=== PATIENT | male | born 2005 | race Caucasian/White ===

== ENCOUNTER 2024-03-19 21:53 | Emergency (ER) | payer OTHER, SELFPAY ==
[2024-03-19] MEDS ORDERED: ACETAMINOPHEN 500 MG TAB ONE (23:10)
[2024-03-19] MEDS ORDERED: KETOROLAC 30 MG/ML INJ ONE (23:10)
[2024-03-19 23:37] LABS: Absolute Eosinophils 0.1 K/uL (0-0.5); Absolute Lymphocytes (CBC) 3.5 K/uL (0.7-4.9); Absolute Monocytes 0.5 K/uL (0.1-1.3); Absolute Neutrophil 3.3 K/uL (1.8-8.0); Basophils % 0.2 % (0-1.3); Eosinophils % 1.5 % (0-4.4); Hematocrit 41.8 % (39.6-49.0); Hemoglobin 14.2 g/dL (13.6-17.9); Lymphocytes % 47.3 % (15.3-44.8); MCH 29.9 pg (27.0-35.0); MCHC 33.9 g/dL (32.0-36.0); MCV 88.1 fL (80-100); Monocytes % 6.4 % (3.3-12.3); Neutrophils % 44.6 % (41.7-73.7); Nucleated Red Blood Cells % 0.1 % (0-0); Platelets 136 thou/uL (152-406); RBC Red Blood Cell Count 4.74 M/uL (4.33-5.43); Red Cell Distribution Width 12.9 % (12.1-15.2)
[2024-03-19 23:52] LABS: Specific Gravity 1.016 (1.005-1.030); Sqamous Epithelial None Seen /HPF (None Seen); Urine Bacteria None Seen /HPF (<20); Urine Bilirubin NEGATIVE (Negative); Urine Blood Negative (Negative); Urine Clarity Clear (Clear); Urine Color Light-Yellow (Yellow); Urine Crystals Unidentified Few /HPF (None Seen); Urine Culture Reflex Order NOT NEEDED; Urine Glucose NEGATIVE (Negative); Urine Ketones NEGATIVE (Negative); Urine Micro Reflex YN NO BILL MICROSCOPIC; Urine Mucus Slight /HPF (None Seen); Urine Nitrite NEGATIVE (Negative); Urine Protein NEGATIVE (Negative); Urine RBC <5 /HPF (None Seen); Urine Urobilinogen Normal (Normal)
--- NOTE | 2024-03-20 00:39 | RAD REPORT ---
EXAM: US Scrotum CLINICAL HISTORY: The patient is 18 years old and is Male; scrotal pain TECHNIQUE: Real-time ultrasound of the scrotum with color Doppler and image documentation. COMPARISON: No relevant prior studies available. FINDINGS: RIGHT TESTICLE: Unremarkable. No mass. There is normal blood flow in the testicle, without ev idence of testicular torsion. LEFT TESTICLE: Unremarkable. No mass. There is normal blood flow in the testicle, without rogelio dence of testicular torsion. EPIDIDYMIDES: A left epididymal head cyst is noted. SCROTUM: A left varicocele is present. IMPRESSION: 1. No evidence of torsion. 2. Left varicocele. Electronically signed by: Bethany Stewart MD 03/20/2024 12:35 AM [facility] Due to temporary technical issues with the PACS/[employer] reporting system, reports are being signed by the in-house radiologist without review as a courtesy to ensure prompt reporting the interpreting radiologist is fully responsible for the content of the report. Transcribed Date/Time: 03/20/2024 12:39 AM
--- NOTE | 2024-03-20 00:51 | ER ---
Nurse's Notes [facility] Name: Elia Tatum Age: 18 yrs Sex: Male : 2005 Arrival Date: 03/19/2024 Time: 21:53 Bed 17 Private MD: Diagnosis: Varicocele Presentation: 03/19 22:16 Chief complaint: Patient states: noticed a lump inside of scrotum a couple of months vc1 ago. Tonight it started shooting pain to lower right abdomen. Coronavirus screen: Client denies travel out of the [place] in the last 14 days. At this time, the client does not indicate any symptoms associated with coronavirus-19. Ebola Screen: Patient negative for fever greater than or equal to 101.5 degrees Fahrenheit, and additional compatible Ebola Virus Disease symptoms Patient denies exposure to infectious person. Patient denies travel to an Ebola-affected area in the 21 days before illness onset. No symptoms or risks identified at this time. Initial Sepsis Screen: Does the patient meet any 2 criteria? No. Patient's initial sepsis screen is negative. Does the patient have a suspected source of infection? No. Patient's initial sepsis screen is negative. Risk Assessment: Do you want to hurt yourself or someone else? Patient reports no desire to harm self or others. Onset of symptoms is unknown. 22:16 Method Of Arrival: Ambulatory vc1 22:16 Acuity: MONA 3 vc1 Historical: - Allergies: 22:19 No Known Allergies; vc1 - Home Meds: 22:19 None [Active]; vc1 - PMHx: 22:19 Anxiety; Depressive disorder; vc1 - PSHx: 22:19 None; vc1 - Immunization history:: Client reports receiving the 2nd dose of the Covid vaccine, Flu vaccine is not up to date. - Infectious Disease History:: Denies. - Social history:: Smoking status: Patient denies any tobacco usage or history of. Screenin:22 [facility] ED Fall Risk Assessment (Adult) History of falling in the last 3 months, vc1 including since admission No falls in past 3 months (0 pts) Confusion or Disorientation No (0 pts) Intoxicated or Sedated No (0 pts) Impaired Gait No (0 pts) Mobility Assist Device Used No (0 pt) Altered Elimination No (0 pt) Score/Fall Risk Level 0 - 2 = Low Risk Oriented to surroundings, Maintained a safe environment, Educated pt \T\ family on fall prevention, incl call for assistance when getting out of bed. Abuse screen: Denies threats or abuse. Nutritional screening: No deficits noted. Tuberculosis screening: No symptoms or risk factors identified. Assessment: 22:20 Reassessment: Patient and/or family updated on plan of care and expected duration. Pain br2 level reassessed. Patient is alert, oriented x 3, equal unlabored respirations, skin warm/dry/pink. General: Appears uncomfortable, Behavior is calm, cooperative. Pain: Complains of pain in groin and left femoral area Neuro: Carney Agitation-Sedation Scale (RASS): 0 - Alert and Calm. Cardiovascular: No deficits noted. Denies chest pain. Respiratory: Airway is patent Respiratory effort is even, unlabored, Respiratory pattern is regular, symmetrical. GI: Bowel sounds present X 4 quads. Abdomen is tender to palpation in left lower quadrant. : Reports pain testicle, Pain is 8 out of 10 on a pain scale. 23:30 Reassessment: Patient and/or family updated on plan of care and expected duration. Pain br2 level reassessed. Patient is alert, oriented x 3, equal unlabored respirations, skin warm/dry/pink. Patient denies pain at this time. Patient states feeling better. Patient states symptoms have improved. 03/20 00:20 Reassessment: No changes from previously documented assessment. br2 Vital Signs: 03/19 22:16 BP 153 / 81; Pulse 71; Resp 14; Temp 98; Pulse Ox 97% ; Weight 63.5 kg; Height 5 ft. 11 vc1 in. ; Pain 8/10; 23:44 BP 120 / 65; Pulse 60; Resp 18; Pulse Ox 99% ; Pain 0/10; br2 03/20 01:14 BP 109 / 51; Pulse 58; Resp 18 S; Pulse Ox 100% on R/A; Pain 0/10; br2 03/19 22:16 Body Mass Index 19.53 (63.50 kg, 180.34 cm) vc1 03/19 22:16 Pain Scale: Adult vc1 23:44 Pain Scale: Adult br2 03/20 01:14 Pain Scale: Adult br2 ED Course: 03/19 21:56 Patient arrived in ED. im 22:00 Ramon Blankenship MD is Attending Physician. ec2 22:16 Dina Guerra, SCOTT is Primary Nurse. br2 22:19 Triage completed. vc1 22:21 Arm band placed on right wrist. vc1 22:21 Provided Education on: PLAN OF CARE. br2 22:22 Patient has correct armband on for positive identification. Bed in low position. Call vc1 light in reach. Pulse ox on. NIBP on. 22:55 Scrotum Testicles US In Process Unspecified. EDMS 23:10 CT Abd/Pelvis - Without Contrast In Process Unspecified. EDMS 03/20 01:14 No provider procedures requiring assistance completed. IV discontinued, intact, br2 bleeding controlled, No redness/swelling at site. Pressure dressing applied. Administered Medications: 03/19 23:16 Drug: Acetaminophen PO 1000 mg PO once Route: PO; br2 03/20 00:20 Follow up: Response: No adverse reaction br2 03/19 23:16 Not Given (changed routee): [id number] mg IM once br2 23:16 Drug: Ketorolac IVP 15 mg IVP once Route: IVP; Site: right antecubital; br2 03/20 00:21 Follow up: Response: No adverse reaction br2 Medication: 03/19 22:22 VIS not applicable for this client. vc1 Outcome: 03/20 00:50 Discharge ordered by . ec2 01:14 Discharged to home ambulatory, br2 01:14 Condition: stable 01:14 Discharge instructions given to patient, Instructed on discharge instructions, follow up and referral plans. Demonstrated understanding of instructions, follow-up care, 01:15 Patient left the ED. br2 Signatures: Dispatcher [employer] [facility] Hannah Sloan RN RN vc1 Carmel Cooper Ramon Blankenship MD MD ec2 Dina Guerra RN RN br2
--- NOTE | 2024-03-20 00:51 | EDPHYS ---
Physician Documentation [facility] Name: Elia Tatum Age: 18 yrs Sex: Male : 2005 Arrival Date: 03/19/2024 Time: 21:53 Bed 17 Private MD: ED Physician Ramon Blankenship HPI: 03/19 22:17 This 18 yrs old Male presents to ER via Unassigned with complaints of ec2 Testicular Lump, Testicular Pain, Abdominal Pain. 22:17 Patient arrives today for evaluation of left testicle pain. Reports onset of several ec2 weeks ago worsening today. Reports some associated nausea with the testicle pain. States the pain radiates into the abdomen. No vomiting, no diarrhea. Reports otherwise no significant abdominal pain. Patient reports no urinary complaints. No significant medical problems, no daily medications, denies any discharge. Historical: - Allergies: 22:19 No Known Allergies; vc1 - Home Meds: 22:19 None [Active]; vc1 - PMHx: 22:19 Anxiety; Depressive disorder; vc1 - PSHx: 22:19 None; vc1 - Immunization history:: Client reports receiving the 2nd dose of the Covid vaccine, Flu vaccine is not up to date. - Infectious Disease History:: Denies. - Social history:: Smoking status: Patient denies any tobacco usage or history of. ROS: 22:17 Constitutional: as per hpi ec2 Exam: 22:17 Constitutional: GEN: NAD Head: atraumatic Eyes: EOMI Ears: External ears are ec2 normal. CV: regular rate LUNGS: no respiratory distress ABD: non-distended. : Intact cremasterics reflexes bilaterally. Epididymal tenderness on the left side. No significant swelling to the scrotum noted. No ecchymosis noted, no crepitus. SKIN: no evidence of rashes MSK: no evidence of trauma Vital Signs: 22:16 BP 153 / 81; Pulse 71; Resp 14; Temp 98; Pulse Ox 97% ; Weight 63.5 kg; Height 5 ft. 11 vc1 in. ; Pain 8/10; 23:44 BP 120 / 65; Pulse 60; Resp 18; Pulse Ox 99% ; Pain 0/10; br2 03/20 01:14 BP 109 / 51; Pulse 58; Resp 18 S; Pulse Ox 100% on R/A; Pain 0/10; br2 03/19 22:16 Body Mass Index 19.53 (63.50 kg, 180.34 cm) vc1 03/19 22:16 Pain Scale: Adult vc1 23:44 Pain Scale: Adult br2 03/20 01:14 Pain Scale: Adult br2 MDM: 03/19 22:04 Medical Screening Exam initiated ec2 22:17 Data reviewed: vital signs, nurses notes. ED course: Patient arrives today for ec2 evaluation of left testicle pain. Examination yields testicular findings as above. Will obtain ultrasound. Differential includes orchitis, epididymitis, doubt torsion.. 03/20 00:49 ED course: Ultrasound shows left varicocele, CT imaging negative. Will discharge home. ec2 Return precautions given.. 03/19 22:07 Order name: UAM; Complete Time: 00:05 ec2 03/19 22:40 Order name: CBC with Diff; Complete Time: 00:05 ec2 03/19 22:40 Order name: BMP; Complete Time: 00:05 ec2 03/19 22:07 Order name: Scrotum Testicles US ec2 03/19 22:40 Order name: CT Abd/Pelvis - Without Contrast ec2 Administered Medications: 03/19 23:16 Drug: Acetaminophen PO 1000 mg PO once Route: PO; br2 03/20 00:20 Follow up: Response: No adverse reaction br2 03/19 23:16 Not Given (changed routee): [id number] mg IM once br2 23:16 Drug: Ketorolac IVP 15 mg IVP once Route: IVP; Site: right antecubital; br2 03/20 00:21 Follow up: Response: No adverse reaction br2 Disposition Summary: 03/20/24 00:50 Discharge Ordered Notes: Location: Home ec2 Condition: Stable ec2 Diagnosis - Varicocele ec2 Followup: ec2 - With: Private Physician - When: - Reason: Recheck today's complaints Discharge Instructions: - Discharge Summary Sheet ec2 - Varicocele ec2 Forms: - Medication Reconciliation Form ec2 - Antibiotic Education ec2 - Prescription Opioid Use ec2 - Patient Portal Instructions ec2 - Leadership Thank You Letter ec2 Signatures: Dispatcher [employer] Hannah Paris RN RN vc1 Ramon Blankenship MD MD ec2 Dina Guerra, RN RN br2
--- NOTE | 2024-03-20 01:26 | RAD REPORT ---
EXAM: CT Abdomen and Pelvis Without Intravenous Contrast CLINICAL HISTORY: The patient is 18 years old and is Male; L flank/groin pain TECHNIQUE: Axial computed tomography images of the abdomen and pelvis without intravenous contrast. Sagittal and coronal reformatted images were created and reviewed. This CT exam was performed using one or more of the following dose reduction techniques: automated exposure control, adjustment of the m A and/or kV according to patient size, and/or use of iterative reconstruction technique. COMPARISON: No relevant prior studies available. FINDINGS: LUNG BASES: Unremarkable. No mass. No consolidation. ABDOMEN: LIVER: Homogeneous without focal mass. GALLBLADDER AND BILE DUCTS: The gallbladder slightly contracted. No calcified gallstones or ducta l dilatation is seen. PANCREAS: Unremarkable. No ductal dilation. SPLEEN: Unremarkable. ADRENALS: Unremarkable. No mass. KIDNEYS AND URETERS: No obstructing stones. No hydronephrosis. No perinephric fluid. STOMACH AND BOWEL: The stomach is distended with food and air. The small bowel is normal in calib er. Stool is present throughout the colon. There is no mucosal thickening or evidence of obstruction. PELVIS: APPENDIX: The appendix is normal in caliber without surrounding inflammation. BLADDER: The bladder is nearly empty. No stones. REPRODUCTIVE: Unremarkable as visualized. ABDOMEN and PELVIS: INTRAPERITONEAL SPACE: Unremarkable. No free air. No significant fluid collection. 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 There is no acute fracture. SOFT TISSUES: The soft tissues are normal. VASCULATURE: Unremarkable. No abdominal aortic aneurysm. LYMPH NODES: Unremarkable. No enlarged lymph nodes. IMPRESSION: No acute findings on this noncontrasted CT of the abdomen and pelvis to explain the patient's sympt oms. Electronically signed by: Bethany Stewart MD 03/20/2024 12:36 AM [facility] Due to temporary technical issues with the PACS/[employer] reporting system, reports are being monique d by the in-house radiologist without review as a courtesy to ensure prompt reporting the interpreting radiologist is fully responsible for the content of the report. Transcribed Date/Time: 03/20/2024 1:26 AM
[2024-03-20 01:33] VITALS: TEMP 98
[2024-03-20 01:36] VITALS: BP 109/51; O2SAT 100
== END 2024-03-20 01:15 | disposition home or self-care (01) ==
LOC: ER 21:53
DX: I86.1 Scrotal varices (principal)
CPT/HCPCS: 36415; 74176; 76870; 80048; 81001; 85025; 96374; 99284